=== PATIENT | male | born 1990 | race Caucasian/White ===

== ENCOUNTER 2019-05-28 15:25 | Emergency (ER) | payer OTHER ==
[~2019-05-28] VITALS: Ht 190.5 cm; Wt 81.6 kg
[2019-05-28 15:32] VITALS: BP 120/74
--- NOTE | 2019-05-28 16:30 | Emergency Room Report ---
History of Present Illness General Chief Complaint: Upper Extremity Injury Source: Patient Present Illness HPI 29-year-old male with no significant past medical history here complaining of pain in the right hand after punching a wall yesterday. Obvious deformity of the right middle finger. Abrasions noted on all fingers. However no point tenderness noted. Minimal swelling noted. Denies tingling and numbness. Patient has good radial pulse. Denies other injury, no motor or sensory deficits noted. Denies chest pain, shortness of breath, palpitation, other associated symptoms. Has not taken medication for symptom relief. Allergies: Uncoded Allergies: UBISTESIN (Allergy, Unknown, 05/28/19) Patient History Past Medical History: see triage record Past Surgical History: unable to obtain Pertinent Family History: none Immunizations: UTD Reviewed Nursing Documentation: PMH: Agreed; PSxH: Agreed Nursing Documentation-PMH Past Medical History: No Stated History Review of Systems All Other Systems: negative except mentioned in HPI Physical Exam Vital Signs Date Time Temp Pulse Resp B/P (MAP) Pulse Ox O2 Delivery O2 Flow Rate FiO2 05/28/19 15:29 97.7 108 17 120/74 (89) 99 Room Air Sp02 EP Interpretation: reviewed, normal General Appearance: no apparent distress, alert, GCS 15, non-toxic Head: normocephalic, atraumatic Eyes: bilateral eye normal inspection, bilateral eye PERRL ENT: hearing grossly normal, normal pharynx, no angioedema, normal voice Neck: full range of motion, supple/symm/no masses Respiratory: chest non-tender, lungs clear, normal breath sounds, no rhonchi, no retraction, speaking full sentences Cardiovascular #1: regular rate, rhythm, no edema, no murmur, normal capillary refill Cardiovascular #2: 2+ radial (R), 2+ radial (L) Gastrointestinal: non tender, soft Rectal: deferred Genitourinary: no CVA tenderness Musculoskeletal: back normal, inflammation - Right third and fourth fingers, other - Right middle finger in a bent position Neurologic: alert, motor strength/tone normal, oriented x3, sensory intact, responsive, speech normal Psychiatric: judgement/insight normal, memory normal, mood/affect normal, no suicidal/homicidal ideation Skin: abrasion - right middle, index, ring finger Lymphatic: no adenopathy Procedures Splinting Splinting : Consent: Verbal Location: right middle finger Pre-Made Type: metal Pre-Proc Neuro Vasc Exam: normal Post-Proc Neuro Vasc Exam: normal Patient Tolerated: Well Complications: None Medical Decision Making PA Attestation All my diagnosis and treatment plans were reviewed ad discussed with my supervising physician Dr. Farrell Diagnostic Impression: Primary Impression: Mallet finger of right finger(s) Additional Impressions: Abrasion Contusion, hand ER Course 29-year-old male with no significant past medical history here complaining of pain in the right hand after punching a wall yesterday. Obvious deformity of the right middle finger. Abrasions noted on all fingers. However no point tenderness noted. Minimal swelling noted. Denies tingling and numbness. Patient has good radial pulse. Denies other injury, no motor or sensory deficits noted. Denies chest pain, shortness of breath, palpitation, other associated symptoms. Has not taken medication for symptom relief. Ddx considered but are not limited to: Mallet finger, contusion, fracture, sprain versus strain Vital signs: are WNL, pt. is afebrile H&PE are most consistent with : Mallet finger right middle finger, abrasion, contusion ORDERS: Hand x-ray, ibuprofen, Robaxin ED INTERVENTIONS: Metal splint applied, wound clean DISCHARGE: At this time pt. is stable for d/c to home. Will provide printed patient care instructions, and any necessary prescriptions. Care plan and follow up instructions have been discussed with the patient prior to discharge. Patient to follow-up with operations specialists, if worsening symptoms return to the emergency room. Avoid strenuous physical activity. I explained to patient that the treatment is the same even if there is a small fracture might have been missed on x-ray analysis. Patient agrees with the above treatment. Other X-Ray Diagnostic Results Other X-Ray Diagnostic Results : X-Ray ordered: Right hand # of Views/Limited Vs Complete: 3 View Indication: Pain EP Interpretation: Yes JULEE Xray: Interpretation reviewed, by supervising MD, and agrees with findings. Interpretation: no dislocation, no soft tissue swelling, no fractures, other - Mallet finger Impression: Other - Mallet finger of right middle finger Electronically Signed by: Della Cadena PA-C Last Vital Signs Date Time Temp Pulse Resp B/P (MAP) Pulse Ox O2 Delivery O2 Flow Rate FiO2 05/28/19 15:29 97.7 108 17 120/74 (89) 99 Room Air Disposition: HOME, SELF-CARE Condition: Stable Scripts Methocarbamol* (ROBAXIN-500*) 500 Mg Tablet 500 MG ORAL TID PRN for For Pain, #15 TAB 0 Refills Prov: Della Ovalle 05/28/19 Ibuprofen (Ibu) 800 Mg Tablet 800 MG PO BID, #20 TAB Prov: Della Ovalle 05/28/19 Referrals: NOT CHOSEN IPA/MD,REFERRING (PCP) Patient Instructions: Abrasion, [id number], Contusion, [id number], Mallet Finger Additional Instructions: Take medication as directed, follow-up with your primary care provider needs to be seen by operations specialists. If worsening symptoms return to the emergency room Della Ovalle May 28, 2019 16:30
[2019-05-28] MEDS ORDERED: IBU800 MG PO (16:31)
[2019-05-28] MEDS ORDERED: ROBAXIN-500MG ORAL (16:31)
[2019-05-28 16:44] VITALS: BP 116/70
[2019-05-28] MEDS ORDERED: Bacitracin Oint UD TOPIC ONE (16:45)
--- NOTE | 2019-05-28 16:46 | Diagnostic Imaging Report ---
Indication: Hand pain, trauma Technique: 3 views right hand Comparison: none Findings: No acute fractures. No dislocations. The joint spaces are preserved Impression: Negative
== END 2019-05-28 16:44 | disposition home or self-care (01) ==
LOC: EMR 15:50
DX: M20.011 Mallet finger of right finger(s) (principal); S60.221A Contusion of right hand, initial encounter; W22.8XXA Striking against or struck by other objects, initial encounter; Y93.89 Activity, other specified; Y92.9 Unspecified place or not applicable; Z88.4 Allergy status to anesthetic agent
CPT/HCPCS: 29130; 73130; Z7502; 99283